=== PATIENT | female | born 1985 | race Caucasian/White ===

== ENCOUNTER 2018-03-25 14:56 | Observation (INO) | payer MEDICAID | END 2018-03-25 18:00 | disposition home or self-care (01) | LOC: L-D 14:56 | DX: O26.893 Other specified pregnancy related conditions, third trimester (principal); Z3A.28 28 weeks gestation of pregnancy | CPT/HCPCS: 76817; 99217 ==

== ENCOUNTER 2018-06-06 06:57 | Inpatient (IN) | payer MEDICAID ==
[2018-06-06] MEDS ORDERED: CARBOPROST 250 MCG INJ IM ×2 (07:30→09:30)
[2018-06-06] MEDS ORDERED: LIDOCAINE 1% (MPF) 30 ML INJ INJ (07:30)
[2018-06-06] MEDS ORDERED: OXYTOCIN 30 UNITS/LR 500 ML IV ×2 (07:30→09:30)
[2018-06-06] MEDS ORDERED: MISOPROSTOL 200 MCG TAB PR ×2 (07:30→09:30)
[2018-06-06] MEDS ORDERED: BUTORPHANOL 2 MG INJ IV (07:30)
[2018-06-06 07:43] LABS: ADD MAN DIFF? NO
[2018-06-06] MEDS: LACTATED RINGER'S 1,000 ML IV (07:46)
[2018-06-06] MEDS: AMPICILLIN 2 GM/NS (PMX) 100 ML IVPB (07:46)
[2018-06-06 07:48] LABS: WHITE BLOOD COUNT 8.6 10^3/ul (4.8-10.8)
[2018-06-06 07:48] LABS: BASOPHILS % 0.2 % (0.0-2.0); EOSINOPHILS # 0.1 10^3/ul (0.0-0.5); EOSINOPHILS % 0.7 % (0.0-7.0); HEMATOCRIT 33.5 % (37.0-47.0); HEMOGLOBIN 11.4 g/dl (12.0-16.0); LYMPHOCYTES # 2.9 10^3/ul (0.8-2.9); LYMPHOCYTES % 33.2 % (15.0-51.0); MEAN CORPUSCULAR HEMOGLOBIN 26.8 pg (29.0-33.0); MEAN CORPUSCULAR VOLUME 78.8 fl (82.0-101.0); MONOCYTE # 0.6 10^3/ul (0.3-0.9); MONOCYTES % 7.1 % (0.0-11.0); NEUTROPHILS % 58.5 % (39.0-77.0); PLATELET COUNT 167 10^3/UL (140-415); RED BLOOD COUNT 4.25 10^6/ul (4.20-5.40); RED CELL DISTRIBUTION WIDTH 14.1 % (11.5-14.5)
[2018-06-06 07:52] LABS: MEAN PLATELET VOLUME 11.9 fl (7.4-10.4); POSITIVE DIFF @See below
[2018-06-06 08:07] LABS: INR 0.96; PROTIME 12.9 Sec (11.9-14.9)
[2018-06-06 08:08] LABS: PARTIAL THROMBOPLASTIN TIME 26.9 Sec (23.0-35.0)
[2018-06-06] MEDS ORDERED: FENTAnyl 2MCG/ML-ROPIV 0.2% 100 ML (08:10)
[2018-06-06] MEDS ORDERED: FENTAnyl 2MCG/ML-ROPIV 0.2% 100 ML BAG EPI (08:30)
[2018-06-06] MEDS ORDERED: NALOXONE (0.4 MG/ML) INJ IV (08:30)
[2018-06-06] MEDS: METHYLERGONOVINE 0.2 MG INJ IM (09:16)
[2018-06-06] MEDS: OXYTOCIN 30 UNITS/LR 500 ML IV ×3 (09:19→09:43)
[2018-06-06] MEDS ORDERED: NACL 0.9% 3 ML SYG IV (09:30)
[2018-06-06] MEDS ORDERED: ONDANSETRON 4 MG INJ IV (09:30)
[2018-06-06] MEDS ORDERED: OXYCODONE/ASPIRIN (4.88/325) TAB PO (09:30)
[2018-06-06] MEDS ORDERED: METHYLERGONOVINE 0.2 MG INJ IM (09:30)
[2018-06-06] MEDS ORDERED: SENNA/DOCUSATE NA (8.6MG/50MG) TAB PO (09:30)
[2018-06-06] MEDS: IBUPROFEN 600 MG TAB PO ×2 (12:00→18:20)
[2018-06-06] MEDS ORDERED: AMPICILLIN 1 GM/NS (PMX) 50 ML IVPB (13:00)
[2018-06-06] MEDS: OXYCODONE/ASPIRIN (4.88/325) TAB PO (13:41)
[2018-06-06] MEDS: LANOLIN HPA 1 PKT TOP (13:42)
[2018-06-06] MEDS: BENZOCAINE 20% 56 ML SPRAY TOP (13:42)
[2018-06-06] MEDS: WITCH HAZEL/GLYCERIN PAD PR (13:42)
[2018-06-06 15:10] LABS: RAPID PLASMA REAGIN NONREACTIVE (NR)
[2018-06-06] MEDS: SENNA/DOCUSATE NA (8.6MG/50MG) TAB PO (21:08)
[2018-06-07] MEDS: IBUPROFEN 600 MG TAB PO ×5 (01:37→17:38)
[2018-06-07] MEDS: OXYCODONE/ASPIRIN (4.88/325) TAB PO (05:28)
[2018-06-07] MEDS: BENZOCAINE 20% 56 ML SPRAY TOP (05:35)
[2018-06-07] MEDS: WITCH HAZEL/GLYCERIN PAD PR (05:35)
[2018-06-07 08:13] LABS: ADD MAN DIFF? NO
[2018-06-07 08:15] LABS: WHITE BLOOD COUNT 9.9 10^3/ul (4.8-10.8)
[2018-06-07 08:15] LABS: BASOPHILS % 0.2 % (0.0-2.0); EOSINOPHILS # 0.1 10^3/ul (0.0-0.5); HEMOGLOBIN 9.6 g/dl (12.0-16.0); LYMPHOCYTES % 29.7 % (15.0-51.0); MEAN CORPUSCULAR HEMOGLOBIN 26.3 pg (29.0-33.0); MEAN CORPUSCULAR HGB CONC 33.1 g/dl (32.0-37.0); MEAN CORPUSCULAR VOLUME 79.5 fl (82.0-101.0); MONOCYTE # 0.6 10^3/ul (0.3-0.9); MONOCYTES % 6.4 % (0.0-11.0); NEUTROPHIL # 6.2 10^3/ul (1.6-7.5); NEUTROPHILS % 62.3 % (39.0-77.0); PLATELET COUNT 167 10^3/UL (140-415); RED BLOOD COUNT 3.65 10^6/ul (4.20-5.40); RED CELL DISTRIBUTION WIDTH 14.3 % (11.5-14.5)
[2018-06-07] MEDS: SENNA/DOCUSATE NA (8.6MG/50MG) TAB PO ×2 (09:59→21:33)
[2018-06-07] MEDS: LANOLIN HPA 1 PKT TOP (11:41)
[2018-06-08] MEDS: IBUPROFEN 600 MG TAB PO (06:27)
[2018-06-08] MEDS: SENNA/DOCUSATE NA (8.6MG/50MG) TAB PO (08:41)
[2018-06-08] MEDS: LANOLIN HPA 1 PKT TOP (08:41)
== END 2018-06-08 10:55 | disposition home or self-care (01) | DRG 807 ==
LOC: OBT 06:57 → L-D 06:57 → OBT 07:20 → L-D 07:20 → PP1 11:18
PROVIDERS: Obstetrics & Gynecology
PROC: 10E0XZZ Delivery of Products of Conception, External Approach (ICD-10-PCS; principal; 2018-06-06)
DX: O80 Encounter for full-term uncomplicated delivery (principal); Z37.0 Single live birth; Z3A.37 37 weeks gestation of pregnancy
CPT/HCPCS: 62319; 85025; 85610; 85730; 86592; 86850; 86900; 86901; 99464